=== PATIENT | female | born 1980 ===

== ENCOUNTER 2017-03-28 21:39 | Emergency (ER) | payer SELFPAY ==
[2017-03-29] MEDS ORDERED: TESSALON PERLES PO ONE (01:20)
[2017-03-29] MEDS ORDERED: MOTRIN PO ONE (01:20)
--- NOTE | 2017-03-29 02:23 | XRay Report ---
FINAL REPORT PROCEDURE: XR CHEST ROUTINE 2V TECHNIQUE: PA and lateral chest radiographs were obtained. CPT 59069 HISTORY: cough COMPARISON: No prior studies are available for comparison. FINDINGS: Heart: Normal. Mediastinum/Vessels: Normal. Lungs/Pleural space: Normal. Bony thorax: No acute osseous abnormality. Other: IMPRESSION: Normal examination.
--- NOTE | 2017-03-29 03:39 | Emergency Department Report ---
- General Chief Complaint: Upper Respiratory Infection Stated Complaint: VOMITING/FEVER Time Seen by Provider: 03/29/17 03:05 Source: patient Mode of arrival: Ambulatory Limitations: No Limitations - History of Present Illness Initial Comments: This is a 37-year-old female nontoxic, well nourished in appearance, no acute signs of distress presents to the ED with c/o of productive cough, body aches, rhinorrhea, and nasal congestion x 3 week. Patient describes productive cough as yellow mucus production. Patient denies any sick contact. Patient denies any recent travels, long car rides, or recent hospital stays. Patient denies calf pain or calf tenderness. Patient denies drooling or hoarseness. Denies any hemoptysis. Patient denies chest pain, shortness of breath, nausea, vomiting, headache, stiff neck, numbness, tingling. Patient denies any allergies. Denies PMH. MD Complaint: cough, rhinorrhea, nasal congestion -: week(s) (3) Severity: mild Severity scale (0 -10): 8 Quality: aching Consistency: constant Improves With: nothing Worsens With: nothing Associated Symptoms: rhinorrhea, nasal congestion, cough. denies: fever, chills , myalgias, diaphoresis, headache, sore throat, stiff neck, chest pain, shortness of breath, abdominal pain, nausea, vomiting, diarrhea, dysuria, rash, confusion, right sweats, weight loss, epistaxis, hoarseness, ear pain Treatments Prior to Arrival: none - Related Data Previous Rx's Medication Instructions Recorded Last Taken Type Amlodipine Besylate [Norvasc] 5 mg PO DAILY #30 tablet 03/29/17 Unknown Rx Azithromycin [Zithromax Z-DONALD] 250 mg PO DAILY #6 tablet 03/29/17 Unknown Rx Benzonatate [Tessalon Perle] 100 mg PO Q6H PRN #20 capsule 03/29/17 Unknown Rx Allergies Allergy/AdvReac Type Severity Reaction Status Date / Time No Known Allergies Allergy Verified 03/28/17 22:18 ED Review of Systems ROS: Stated complaint: VOMITING/FEVER Other details as noted in HPI Constitutional: denies: chills, fever Eyes: denies: eye pain, eye discharge, vision change ENT: denies: ear pain, throat pain Respiratory: cough. denies: shortness of breath, wheezing Cardiovascular: denies: chest pain, palpitations Endocrine: no symptoms reported Gastrointestinal: denies: abdominal pain, nausea, diarrhea Genitourinary: denies: urgency, dysuria, discharge Musculoskeletal: denies: back pain, joint swelling, arthralgia Skin: denies: rash, lesions Neurological: denies: headache, weakness, paresthesias Psychiatric: denies: anxiety, depression Hematological/Lymphatic: denies: easy bleeding, easy bruising ED Past Medical Hx - Past Medical History Previous Medical History?: No - Surgical History Past Surgical History?: No - Social History Smoking Status: Never Smoker Substance Use Type: None - Medications Home Medications: Home Medications Medication Instructions Recorded Confirmed Last Taken Type Amlodipine Besylate [Norvasc] 5 mg PO DAILY #30 tablet 03/29/17 Unknown Rx Azithromycin [Zithromax Z-DONALD] 250 mg PO DAILY #6 tablet 03/29/17 Unknown Rx Benzonatate [Tessalon Perle] 100 mg PO Q6H PRN #20 capsule 03/29/17 Unknown Rx ED Physical Exam - General Limitations: No Limitations General appearance: alert, in no apparent distress - Head Head exam: Present: atraumatic, normocephalic - Eye Eye exam: Present: normal appearance, PERRL, EOMI Pupils: Present: normal accommodation - ENT ENT exam: Present: normal exam, normal orophraynx, mucous membranes moist, TM's normal bilaterally, normal external ear exam - Neck Neck exam: Present: normal inspection, full ROM. Absent: tenderness, meningismus, lymphadenopathy, thyromegaly - Respiratory Respiratory exam: Present: normal lung sounds bilaterally. Absent: respiratory distress, wheezes, rales, rhonchi, stridor, chest wall tenderness, accessory muscle use, decreased breath sounds, prolonged expiratory - Cardiovascular Cardiovascular Exam: Present: regular rate, normal rhythm, normal heart sounds. Absent: irregular rhythm, systolic murmur, diastolic murmur, rubs, gallop - GI/Abdominal GI/Abdominal exam: Present: soft, normal bowel sounds. Absent: distended, tenderness, guarding, rebound, rigid, diminished bowel sounds - Rectal Rectal exam: Present: deferred - Extremities Exam Extremities exam: Present: normal inspection, full ROM, normal capillary refill. Absent: tenderness, pedal edema, joint swelling, calf tenderness - Back Exam Back exam: Present: normal inspection, full ROM. Absent: tenderness, CVA tenderness (R), CVA tenderness (L), muscle spasm, paraspinal tenderness, vertebral tenderness, rash noted - Neurological Exam Neurological exam: Present: alert, oriented X3, CN II-XII intact, normal gait, reflexes normal - Psychiatric Psychiatric exam: Present: normal affect, normal mood - Skin Skin exam: Present: warm, dry, intact, normal color. Absent: rash ED Course Vital Signs 03/28/17 03/29/17 03/29/17 22:19 03:51 04:12 Temperature 98.9 F 98.5 F Pulse Rate 99 H 88 88 Respiratory 16 17 Rate Blood Pressure 167/100 213/108 Blood Pressure 213/108 [Right] O2 Sat by Pulse 97 99 Oximetry 03/29/17 04:55 Temperature 98.2 F Pulse Rate 99 H Respiratory 22 Rate Blood Pressure Blood Pressure 132/61 [Right] O2 Sat by Pulse 98 Oximetry - Reevaluation(s) Reevaluation #1: 03/29/17 03:40 Patient is speaking in full sentences with no signs of distress noted. Reevaluation #2: 03/29/17 03:51 Patient just stated to me that she drinks alcohol for many years and said she was about 1 full bottle a day. Patient stated she has never follow-up with any primary care doctor for medical evaluation. - Consultations Consultation #1: 03/29/17 05:03 Dr. Eduardo was consulted about patient history, physical exam, and lab findings and stated discharge with GI follow-up. ED Medical Decision Making - Lab Data Result diagrams: 03/29/17 04:25 03/29/17 04:25 - Medical Decision Making This is a 37-year-old female that presents with upper resp infection and hypertension. Patient is stable and was examined by me. Chest xray has been obtained and dictated by radiologist with normal exam. Patient notified of x- ray results with no question or by the patient. Due to the patient's stated that she has never follow up with a primary care doctor and states she drinks about one bottle a day of alcohol, labs has been drawn. Currently patient denies any abdominal pain or GI abnormalities. Patient received 1 L of normal saline and 20 mg of hydralazine. Vital signs stable prior to discharge. Patient is afebrile. Normal heart rate. Patient is >72 hour window for Tamiflu. I'll treat patient empirically with zpak due to symptoms worsening at discharge. Patient received Motrin and tesslone perrls in the ED. Patient was orally rehydrated in the ER and patient tolerated well with no signs of nausea or vomiting. Patient was instructed Follow-up with a primary care doctor/GI in 24 hours or if symptoms worsen and continue return to emergency room as soon as possible. At time time of discharge, the patient does not seem toxic or ill in appearance. No acute signs of distress noted. Patient agrees to discharge treatment plan of care. No further questions noted by the patient. This chart is dictated with using [employer] Critical care attestation.: If time is entered above; I have spent that time in minutes in the direct care of this critically ill patient, excluding procedure time. ED Disposition Clinical Impression: Alcohol abuse Upper respiratory infection Qualifiers: URI type: unspecified URI Qualified Code(s): J06.9 - Acute upper respiratory infection, unspecified Hypertension Qualifiers: Hypertension type: unspecified Qualified Code(s): I10 - Essential (primary) hypertension Disposition: DC-01 TO HOME OR SELFCARE Is pt being admited?: No Does the pt Need Aspirin: No Condition: Stable Instructions: Benzonatate (By mouth), Azithromycin (By mouth), Amlodipine (By mouth), Upper Respiratory Infection (ED), Hypertension (ED), Abuse of Alcohol ( ED) Additional Instructions: Follow-up with a primary care doctor/front of house manager in 24 hours or if symptoms worsen and continue return to emergency room as soon as possible. Increase rest, hydration, and take Motrin fever episodes as prescribed. Keep a daily diary of your blood pressure and present it to your primary care doctor. Prescriptions: Amlodipine Besylate [Norvasc] 5 mg PO DAILY #30 tablet Azithromycin [Zithromax Z-DONALD] 250 mg PO DAILY #6 tablet Benzonatate [Tessalon Perle] 100 mg PO Q6H PRN #20 capsule PRN Reason: Cough Referrals: [facility] [Outside] - 3-5 Days [facility] [Outside] - 3-5 Days DANIEL NASCIMENTO MD [Primary Care Provider] - 24 Hours PRIMARY CARE, [Referring] - 24 Hours [facility] [Provider Group] - 24 Hours Forms: Work/School Release Form(ED)
[2017-03-29] MEDS ORDERED: APRESOLINE IV ONE (03:50)
[2017-03-29] MEDS ORDERED: NACL 0.9% 1000 ML 1,000 ML IV ONE (03:50)
[2017-03-29 04:39] LABS: Mean Corpuscular HGB Conc 29 % (30-34); Platelet Count 137 K/mm3 (140-440); Red Blood Count 4.54 M/mm3 (3.65-5.03)
[2017-03-29 04:52] LABS: Hematocrit 29.3 % (30.3-42.9); Hemoglobin 8.4 gm/dl (10.1-14.3); Mean Corpuscular Hemoglobin 19 pg (28-32); Mean Corpuscular Volume 65 fl (79-97); Red Cell Distribution Width 28.8 % (13.2-15.2)
[2017-03-29 04:56] VITALS: BP 132/61
[2017-03-29 04:57] LABS: Alanine Aminotransferase 45 units/L (7-56); Albumin 3.9 g/dL (3.9-5); BUN/Creatinine Ratio 8; Bilirubin,Direct 0.6 mg/dL (0-0.2); Blood Urea Nitrogen 4 mg/dL (7-17); Calcium 8.3 mg/dL (8.4-10.2); Hemolysis Index 0
[2017-03-29 05:39] LABS: Band Neutrophils # (Manual) 0.3 K/mm3; Eosinophils % (Manual) 0 % (0.0-4.3); Total Cells Counted 100
[2017-03-29 05:40] LABS: Anisocytosis 3+; Hypochromasia 2+; Platelet Estimate Consistent w Auto; Target Cells 1+
== END 2017-03-29 06:07 | disposition home or self-care (01) ==
LOC: ED 21:39
DX: J06.9 Acute upper respiratory infection, unspecified (principal); I10 Essential (primary) hypertension; F10.10 Alcohol abuse, uncomplicated; Y90.9 Presence of alcohol in blood, level not specified
CPT/HCPCS: 36415; 71046; 80048; 80074; 84703; 85007; 85025; 96361; 96374; 99284; J0360; J7030

== ENCOUNTER 2020-06-11 01:27 | Emergency (ER) | payer SELFPAY ==
--- NOTE | 2020-06-11 03:33 | Emergency Department Report ---
ED General Adult HPI - General Chief complaint: Extremity Problem,Nontraumatic Stated complaint: RT LEG BLEEDING Time Seen by Provider: 06/11/20 03:27 Source: EMS Mode of arrival: Stretcher Limitations: No Limitations - History of Present Illness Initial comments: Patient is 40 years old female with history of HIV and varicose veins. Patient brought to the emergency room via EMS from home after patient started bleeding from her right lower extremity just lateral to the right knee. Bleeding controlled with tourniquet and pressure band. Patient denied any other injuries or bleeding. Patient is not on any blood thinner medicine. No other symptoms. - Related Data Previous Rx's Medication Instructions Recorded Last Taken Type Amlodipine Besylate [Norvasc] 5 mg PO DAILY #30 tablet 03/29/17 Unknown Rx Azithromycin [Zithromax Z-DONALD] 250 mg PO DAILY #6 tablet 03/29/17 Unknown Rx Benzonatate [Tessalon Perle] 100 mg PO Q6H PRN #20 capsule 03/29/17 Unknown Rx Allergies Allergy/AdvReac Type Severity Reaction Status Date / Time No Known Allergies Allergy Verified 03/28/17 22:18 ED Review of Systems ROS: Stated complaint: RT LEG BLEEDING Other details as noted in HPI Comment: All other systems reviewed and negative Constitutional: denies: chills, fever Respiratory: denies: cough, shortness of breath, SOB with exertion Cardiovascular: denies: chest pain Gastrointestinal: denies: abdominal pain, nausea Neurological: denies: headache, weakness ED Past Medical Hx - Past Medical History Hx Hypertension: Yes Hx GERD: Yes Hx HIV: Yes Additional medical history: Enlarged kidney - Surgical History Past Surgical History?: No - Social History Smoking Status: Current Some Day Smoker Substance Use Type: Alcohol, Marijuana - Medications Home Medications: Home Medications Medication Instructions Recorded Confirmed Last Taken Type Amlodipine Besylate [Norvasc] 5 mg PO DAILY #30 tablet 03/29/17 Unknown Rx Azithromycin [Zithromax Z-DONALD] 250 mg PO DAILY #6 tablet 03/29/17 Unknown Rx Benzonatate [Tessalon Perle] 100 mg PO Q6H PRN #20 capsule 03/29/17 Unknown Rx ED Physical Exam - General Limitations: No Limitations General appearance: alert, in no apparent distress - Head Head exam: Present: atraumatic, normocephalic, normal inspection - Eye Eye exam: Present: normal appearance, PERRL - ENT ENT exam: Present: normal exam, normal orophraynx, mucous membranes moist - Neck Neck exam: Present: normal inspection, full ROM. Absent: tenderness, meningismus - Respiratory Respiratory exam: Present: normal lung sounds bilaterally - Cardiovascular Cardiovascular Exam: Present: regular rate, normal rhythm, normal heart sounds - GI/Abdominal GI/Abdominal exam: Present: soft. Absent: distended, tenderness - Extremities Exam Extremities exam: Present: other (Pressure dressing applied to the right lower extremity at the knee level.) ED Course Vital Signs 06/11/20 06/11/20 06/11/20 01:44 01:45 01:46 Temperature Pulse Rate 99 H 96 H 95 H Respiratory 17 16 15 Rate Blood Pressure 136/82 O2 Sat by Pulse 96 98 96 Oximetry 06/11/20 06/11/20 06/11/20 01:47 01:48 01:50 Temperature 97.7 F Pulse Rate 89 100 H Respiratory 10 L 18 Rate Blood Pressure 136/82 136/82 O2 Sat by Pulse 98 96 Oximetry 06/11/20 06/11/20 06/11/20 01:52 01:54 01:56 Temperature Pulse Rate 89 91 H 94 H Respiratory 11 L 10 L 16 Rate Blood Pressure 136/82 136/82 136/82 O2 Sat by Pulse 97 97 97 Oximetry 06/11/20 06/11/20 06/11/20 01:58 02:00 02:01 Temperature Pulse Rate 86 90 94 H Respiratory 15 18 16 Rate Blood Pressure 136/82 136/82 146/53 O2 Sat by Pulse 96 98 97 Oximetry 06/11/20 06/11/20 06/11/20 02:02 02:04 02:06 Temperature Pulse Rate 102 H 114 H 87 Respiratory 15 16 14 Rate Blood Pressure 146/53 146/53 146/53 O2 Sat by Pulse 98 96 95 Oximetry 06/11/20 06/11/20 06/11/20 02:08 02:10 02:12 Temperature Pulse Rate 95 H 105 H 102 H Respiratory 21 17 18 Rate Blood Pressure 146/53 146/53 146/53 O2 Sat by Pulse 98 97 97 Oximetry 06/11/20 06/11/20 06/11/20 02:14 02:16 02:18 Temperature Pulse Rate 94 H 92 H 86 Respiratory 17 15 12 Rate Blood Pressure 146/53 146/53 146/53 O2 Sat by Pulse 97 97 97 Oximetry 06/11/20 06/11/20 06/11/20 02:20 02:22 02:24 Temperature Pulse Rate 87 90 90 Respiratory 16 11 L 14 Rate Blood Pressure 146/53 146/53 146/53 O2 Sat by Pulse 97 98 96 Oximetry 06/11/20 06/11/20 06/11/20 02:26 02:28 02:30 Temperature Pulse Rate 89 90 89 Respiratory 19 20 16 Rate Blood Pressure 146/53 146/53 132/80 O2 Sat by Pulse 95 97 98 Oximetry 06/11/20 06/11/20 06/11/20 02:31 02:32 02:34 Temperature Pulse Rate 85 90 106 H Respiratory 20 11 L 23 Rate Blood Pressure 132/80 136/82 136/82 O2 Sat by Pulse 100 96 97 Oximetry 06/11/20 06/11/20 06/11/20 02:36 02:38 02:40 Temperature Pulse Rate 98 H 105 H 111 H Respiratory 22 20 15 Rate Blood Pressure 136/82 136/82 136/82 O2 Sat by Pulse 98 97 98 Oximetry 06/11/20 06/11/20 06/11/20 02:42 02:44 02:46 Temperature Pulse Rate 106 H 101 H 104 H Respiratory 18 12 16 Rate Blood Pressure 136/82 136/82 136/82 O2 Sat by Pulse 97 97 98 Oximetry 06/11/20 06/11/20 06/11/20 02:48 02:50 02:52 Temperature Pulse Rate 109 H 111 H 105 H Respiratory 15 14 19 Rate Blood Pressure 136/82 136/82 136/82 O2 Sat by Pulse 98 92 95 Oximetry 06/11/20 06/11/20 06/11/20 02:54 02:56 02:58 Temperature Pulse Rate 109 H 87 92 H Respiratory 30 H 19 19 Rate Blood Pressure 136/82 136/82 136/82 O2 Sat by Pulse 95 97 96 Oximetry 06/11/20 06/11/20 06/11/20 03:00 03:01 03:02 Temperature Pulse Rate Respiratory Rate Blood Pressure 142/87 142/87 142/87 O2 Sat by Pulse 97 95 Oximetry 06/11/20 06/11/20 06/11/20 03:04 03:06 03:08 Temperature Pulse Rate Respiratory Rate Blood Pressure 142/87 142/87 142/87 O2 Sat by Pulse 97 90 91 Oximetry 06/11/20 06/11/20 06/11/20 03:10 03:12 03:14 Temperature Pulse Rate Respiratory Rate Blood Pressure 142/87 142/87 142/87 O2 Sat by Pulse 92 93 95 Oximetry 06/11/20 06/11/20 06/11/20 03:16 03:18 03:20 Temperature Pulse Rate Respiratory Rate Blood Pressure 142/87 142/87 142/87 O2 Sat by Pulse 92 93 98 Oximetry 06/11/20 06/11/20 03:22 03:24 Temperature Pulse Rate Respiratory Rate Blood Pressure 142/87 142/87 O2 Sat by Pulse 93 92 Oximetry - Reevaluation(s) Reevaluation #1: 06/11/20 03:32 Tourniquet and pressure dressing removed and bleeding is completely stopped. We will continue to monitor. ED Medical Decision Making - Lab Data Result diagrams: 06/11/20 03:44 06/11/20 03:44 - Medical Decision Making Patient is 40 years old female with history of HIV and varicose veins. Patient brought to the emergency room via EMS from home after patient started bleeding from her right lower extremity just lateral to the right knee. Bleeding controlled with tourniquet and pressure band. Patient denied any other injuries or bleeding. Patient is not on any blood thinner medicine. No other symptoms. Tourniquet and pressure dressing removed and bleeding is completely stopped. Patient observed for more than 3 hours in the emergency room. No bleeding observed. Patient advised to follow-up with vascular surgery in the next 2 to 3 days and return to the ER if patient develop any more bleeding or any other symptoms. Critical care attestation.: If time is entered above; I have spent that time in minutes in the direct care of this critically ill patient, excluding procedure time. ED Disposition Clinical Impression: Bleeding from varicose vein Disposition: DC-01 TO HOME OR SELFCARE Is pt being admited?: No Condition: Stable Instructions: Varicose Veins Referrals: PRIMARY MD [facility] [Primary Care Provider] - 3-5 Days TEENA STEINER MD [Staff Physician] - 3-5 Days
[2020-06-11 03:59] LABS: Basophils # (Auto) 0.3 K/mm3 (0.0-0.1); Basophils % (Auto) 2.6 % (0.0-1.8); Eosinophils # (Auto) 0.1 K/mm3 (0.0-0.4); Eosinophils % (Auto) 1.3 % (0.0-4.3); Hematocrit 28.3 % (30.3-42.9); Lymphocytes # (Auto) 3.3 K/mm3 (1.2-5.4); Lymphocytes % (Auto) 34.3 % (13.4-35.0); Mean Corpuscular HGB Conc 32 % (30-34); Mean Corpuscular Volume 80 fl (79-97); Monocytes # (Auto) 0.5 K/mm3 (0.0-0.8); Monocytes % (Auto) 5.4 % (0.0-7.3); Platelet Count 226 K/mm3 (140-440); Red Blood Count 3.54 M/mm3 (3.65-5.03)
[2020-06-11 04:07] LABS: INR 1.2 (0.87-1.13)
[2020-06-11 04:08] LABS: Partial Thromboplastin Time 30.6 Sec. (24.2-36.6)
[2020-06-11 04:19] LABS: Blood Urea Nitrogen 5 mg/dL (7-17); Calcium 8.6 mg/dL (8.4-10.2); Hemolysis Index 8
[2020-06-11 04:20] LABS: BUN/Creatinine Ratio 8
[2020-06-11 05:04] LABS: Hepatitis B Surface Antigen Non-Reactive (Negative); Hepatitis C Virus Antibody Non-Reactive (NonReactive)
[2020-06-11 05:44] VITALS: BP 123/81
== END 2020-06-11 05:38 | disposition home or self-care (01) ==
LOC: ED 01:27
DX: I83.892 Varicose veins of left lower extremity with other complications (principal); I10 Essential (primary) hypertension; K21.9 Gastro-esophageal reflux disease without esophagitis; Z21 Asymptomatic human immunodeficiency virus [HIV] infection status; F17.200 Nicotine dependence, unspecified, uncomplicated; Z79.899 Other long term (current) drug therapy
CPT/HCPCS: 36415; 80048; 80074; 85025; 85610; 85730; 87806; 99283